=== PATIENT | male | born 1985 | race Caucasian/White ===

== ENCOUNTER 2018-02-12 06:41 | Day surgery (SDC) | END 2018-02-12 12:14 | disposition home or self-care (01) ==

== ENCOUNTER 2018-03-20 06:48 | Day surgery (SDC) | END 2018-03-20 12:20 | disposition home or self-care (01) ==

== ENCOUNTER 2018-05-14 06:44 | Day surgery (SDC) | END 2018-05-14 14:35 | disposition home or self-care (01) ==